=== PATIENT | male | born 1950 | race Caucasian/White ===

== ENCOUNTER → 2019-01-18 | Outpatient (CLI) | payer OTHER ==
[2019-01-18 12:08] LABS: Basophils # (auto) 0.1 uL; Basophils % (auto) 0.6 % (0.0-2.0); Eosinophils # (auto) 0.4 uL; Eosinophils % (auto) 3.3 % (0.0-7.0); Hematocrit 47.6 % (41.0-53.0); Lymphocytes # (auto) 2.3 uL; Lymphocytes % (auto) 18.2 % (10.0-50.0); Mean Corpuscular Hgb Conc. 33.6 g/dL (32.0-36.0); Mean Corpuscular Volume 95.3 fL (80.0-100.0); Monocytes % (auto) 8.2 % (0.0-12.0); Neutrophils # (auto) 8.7 uL; Neutrophils % (auto) 69.7 % (37.0-80.0); Nucleated Red Blood Cells % 0.6 %; Platelet Count (auto) 260 10^3/uL (140-450); Red Blood Cells 4.99 10^6/uL (4.5-5.90); Red Cell Distribution Width 14.2 % (11.8-14.3); White Blood Cell 12.4 10^3/uL (4.4-10.8)
[2019-01-18 12:57] LABS: Albumin 3.4 g/dL (3.4-5.0); Calcium 9.5 mg/dL (8.5-10.1)
[2019-01-18 13:00] LABS: Bilirubin, Direct 0.2 mg/dL (0-0.2); Bilirubin, Total 0.7 mg/dL (0.2-1.0); Total Protein 7.6 g/dL (6.4-8.2)
== END | disposition home or self-care (01) ==
LOC: LAB 09:49
PROVIDERS: ATTEND Internal Medicine
DX: Z00.00 Encounter for general adult medical examination without abnormal findings (principal); K74.1 Hepatic sclerosis; C61 Malignant neoplasm of prostate; E29.1 Testicular hypofunction; E11.9 Type 2 diabetes mellitus without complications; E03.9 Hypothyroidism, unspecified; D64.9 Anemia, unspecified
CPT/HCPCS: 36415; 80048; 80061; 80076; 82306; 83036; 84153; 84403; 84443; 85025

== ENCOUNTER → 2019-02-23 | Outpatient (CLI) | payer BC | END | disposition home or self-care (01) | LOC: Rad HDHVI 12:36 | PROVIDERS: ATTEND Internal Medicine Cardiovascular Disease | DX: I11.9 Hypertensive heart disease without heart failure (principal); E11.9 Type 2 diabetes mellitus without complications; I47.1 Supraventricular tachycardia | CPT/HCPCS: 93306 ==

== ENCOUNTER → 2019-03-10 | Outpatient (CLI) | payer BC ==
[~2019-03-10] VITALS: Ht 180.3 cm; Wt 142.9 kg
[~2019-03-10] MED LIST: ADENOSINE 120 MG in GIVE UN-DILUTED 0 ML IV ONE; ADENOSINE 90 MG/30 ML INJ IV ONE
== END | disposition home or self-care (01) ==
LOC: Rad HDHVI 13:06
PROVIDERS: ATTEND Internal Medicine Cardiovascular Disease
DX: E11.40 Type 2 diabetes mellitus with diabetic neuropathy, unspecified (principal); I10 Essential (primary) hypertension; R07.89 Other chest pain; R63.8 Other symptoms and signs concerning food and fluid intake; Z79.01 Long term (current) use of anticoagulants
CPT/HCPCS: 78452; 93005; 96374; 96375; A9500; J0153

== ENCOUNTER → 2020-08-22 | Outpatient (CLI) | payer OTHER | END | disposition home or self-care (01) | LOC: Rad HDHVI 12:52 | PROVIDERS: ATTEND Internal Medicine | DX: I10 Essential (primary) hypertension (principal); G62.9 Polyneuropathy, unspecified | CPT/HCPCS: 93880 ==

== ENCOUNTER → 2020-08-24 | Outpatient (CLI) | payer OTHER | END | disposition home or self-care (01) | LOC: Rad HDHVI 09:36 | PROVIDERS: ATTEND Internal Medicine Cardiovascular Disease | DX: I67.82 Cerebral ischemia (principal); I67.2 Cerebral atherosclerosis; G31.89 Other specified degenerative diseases of nervous system; R51.9 Headache, unspecified | CPT/HCPCS: 70450 ==

== ENCOUNTER → 2021-02-25 | Outpatient (CLI) | payer OTHER ==
[~2021-02-25] MED LIST changes: -ADENOSINE 120 MG in GIVE UN-DILUTED 0 ML IV ONE; -ADENOSINE 90 MG/30 ML INJ IV ONE; +GABA100C9 PO; +METF-370 PO; +METO-159 PO; +RIV20T PO; +VALS160T53 PO
[2021-02-25 08:50] VITALS: BP 138/85
[2021-02-25 09:00] VITALS: BP 143/77
[2021-02-25 11:28] LABS: Basophils # (auto) 0.1 10 ^3/uL (0-0.2); Basophils % (auto) 0.9 % (0.0-2.0); Eosinophils # (auto) 0.7 10 ^3/uL (0-0.8); Eosinophils % (auto) 6.7 % (0.0-7.0); Hematocrit 43.6 % (41.0-53.0); Lymphocytes # (auto) 3.3 10 ^3/uL (0.4-5.4); Lymphocytes % (auto) 30.7 % (10.0-50.0); Mean Corpuscular Hgb Conc. 34.5 g/dL (32.0-36.0); Mean Corpuscular Volume 98.7 fL (80.0-100.0); Monocytes % (auto) 9.3 % (0.0-12.0); Neutrophils # (auto) 5.7 10 ^3/uL (1.6-8.6); Neutrophils % (auto) 52.4 % (37.0-80.0); Nucleated Red Blood Cells % 0.1 %; Red Blood Cells 4.42 10^6/uL (4.5-5.90); Red Cell Distribution Width 13.5 % (11.8-14.3); White Blood Cell 10.8 10^3/uL (4.4-10.8)
[2021-02-25 11:41] LABS: INR 0.96 (0.9-1.15); Partial Thromboplastin Time 26.3 sec (23.6-33.0)
[2021-02-25 12:01] LABS: Alanine Aminotransferase 22 U/L (16-61); Albumin 3.1 g/dL (3.4-5.0); Alkaline Phosphatase 123 U/L (45-117); Aspartate Aminotransferase 20 U/L (15-37); BUN/Creatinine Ratio 16.7; Bilirubin, Total 0.4 mg/dL (0.2-1.0); Blood Urea Nitrogen 16 mg/dL (7-18); Calcium 9.3 mg/dL (8.5-10.1); Carbon Dioxide 30 mmol/L (21-32); GFR African American 99 mL/min; GFR Non-African American 82 mL/min; Glucose 101 mg/dL (74-106)
[2021-02-25 12:12] LABS: Total Protein 7.2 g/dL (6.4-8.2)
[2021-02-25 12:32] LABS: Anion Gap 4 (5-15); Chloride 106 mmol/L (98-107); Sodium 140 mmol/L (136-145)
== END | disposition home or self-care (01) ==
LOC: Rad HDHVI 08:31
PROVIDERS: ATTEND Internal Medicine
DX: Z01.812 Encounter for preprocedural laboratory examination (principal); Z45.010 Encounter for checking and testing of cardiac pacemaker pulse generator [battery]
CPT/HCPCS: 36415; 71046; 80053; 85025; 85610; 85730; 93005; G0463

== ENCOUNTER 2021-02-27 06:36 | Day surgery (SDC) | payer OTHER ==
[~2021-02-27] VITALS: Ht 179.1 cm; Wt 141.5 kg
[2021-02-27] MEDS ORDERED: LIDOCAINE 2%HCL (LOCAL ANESTH.) INJ 20ML MDV ONE (07:56)
[2021-02-27] MEDS ORDERED: VANCOMYCIN 1GM/250ML 250 ML IV ONE ×2 (08:00→08:07)
[2021-02-27] MEDS ORDERED: fentaNYL CITRATE 100 MCG/2 ML VL ONE (08:07)
[2021-02-27] MEDS ORDERED: MIDAZOLAM HCL 2MG/2ML 2ml VIAL (1mg/ml) ONE (08:07)
[2021-02-27] MEDS ORDERED: VANCOMYCIN HCL 1000 MG VL ONE (08:25)
== END 2021-02-27 11:01 | disposition home or self-care (01) ==
LOC: CATH 06:36
PROVIDERS: ATTEND Internal Medicine
DX: Z45.010 Encounter for checking and testing of cardiac pacemaker pulse generator [battery] (principal); I10 Essential (primary) hypertension; I25.10 Atherosclerotic heart disease of native coronary artery without angina pectoris; I73.9 Peripheral vascular disease, unspecified; E11.9 Type 2 diabetes mellitus without complications; Z79.899 Other long term (current) drug therapy; Z20.822 Contact with and (suspected) exposure to COVID-19; Z68.41 Body mass index [BMI] 40.0-44.9, adult
CPT/HCPCS: 33228; C1785; J2250; J3010; J3370; J7030; U0003; 99152; 99153

== ENCOUNTER → 2024-01-20 | Outpatient (CLI) | payer OTHER ==
[~2024-01-20] MED LIST changes: +GABA-1308 PO; -GABA100C9 PO
== END | disposition home or self-care (01) ==
LOC: Rad HDHVI 09:30
PROVIDERS: ATTEND Internal Medicine Cardiovascular Disease
DX: I10 Essential (primary) hypertension (principal)
CPT/HCPCS: 93880

== ENCOUNTER → 2024-01-26 | Outpatient (CLI) | payer OTHER | END | disposition home or self-care (01) | LOC: Rad HDHVI 15:00 | PROVIDERS: ATTEND Internal Medicine Cardiovascular Disease | DX: I10 Essential (primary) hypertension (principal); R06.02 Shortness of breath | CPT/HCPCS: 93306 ==

== ENCOUNTER → 2024-02-03 | Outpatient (CLI) | payer OTHER ==
[~2024-02-03] VITALS: Ht 177.8 cm; Wt 140.6 kg
[~2024-02-03] MED LIST changes: +ADENOSINE 118 MG in GIVE UN-DILUTED 0 ML IV ONE; +ADENOSINE 90 MG/30 ML INJ IV ONE
== END | disposition home or self-care (01) ==
LOC: Rad HDHVI 08:14
PROVIDERS: ATTEND Internal Medicine Cardiovascular Disease
DX: I10 Essential (primary) hypertension (principal); R06.02 Shortness of breath; E11.9 Type 2 diabetes mellitus without complications; I48.91 Unspecified atrial fibrillation; I49.5 Sick sinus syndrome; R42 Dizziness and giddiness; Z95.0 Presence of cardiac pacemaker
CPT/HCPCS: 78452; 93005; 96374; 96375; A9500; J0153

== ENCOUNTER → 2024-08-09 | Outpatient (CLI) | payer OTHER ==
[~2024-08-09] MED LIST changes: -ADENOSINE 118 MG in GIVE UN-DILUTED 0 ML IV ONE; -ADENOSINE 90 MG/30 ML INJ IV ONE; +B CO OR; +CHOL50007 PO; +GABA800T97 PO; +VALS40TA2 PO; +VITA80005 PO; +ZINC50TA7 PO
[2024-08-09 08:48] VITALS: BP 147/65; PULSE 81; RESP 16; O2SAT 92
[2024-08-09 09:05] VITALS: BP 132/65; PULSE 93; RESP 16; O2SAT 93
--- NOTE | 2024-08-09 15:12 | DVH ---
XY CHEST TWO VIEWS ROUTINE CLINICAL HISTORY: PRE OP COMPARISON: None TECHNIQUE: Frontal and lateral view of the chest was obtained FINDINGS: Lines and Tubes: Dual-chamber pacemaker in place with pulse generator over the left chest. Lungs: No focal consolidation. Pleura: No effusion. No pneumothorax. Cardiomediastinal contours: Unremarkable Bones: No acute osseous abnormality. IMPRESSION: 1. Pacemaker in place. 2. No active disease
== END | disposition home or self-care (01) ==
LOC: Rad HDHVI 08:28
PROVIDERS: ATTEND Internal Medicine Cardiovascular Disease
DX: Z01.811 Encounter for preprocedural respiratory examination (principal); I48.91 Unspecified atrial fibrillation; I50.33 Acute on chronic diastolic (congestive) heart failure; Z95.0 Presence of cardiac pacemaker
CPT/HCPCS: 71046; 93005; G0463

== ENCOUNTER 2024-08-11 06:08 | Day surgery (SDC) | payer OTHER ==
[2024-08-09 10:48] LABS: Basophils # (auto) 0.1 10 ^3/uL (0-0.2); Basophils % (auto) 0.9 % (0.0-2.0); Eosinophils # (auto) 0.4 10 ^3/uL (0-0.8); Eosinophils % (auto) 3.8 % (0.0-7.0); Hematocrit 46.7 % (41.0-53.0); Hemoglobin 15.5 g/dL (13.5-17.5); Lymphocytes # (auto) 2.1 10 ^3/uL (0.4-5.4); Lymphocytes % (auto) 21.6 % (10.0-50.0); Mean Corpuscular Hemoglobin 31.7 pg (28.0-32.0); Mean Corpuscular Hgb Conc. 33.3 g/dL (32.0-36.0); Mean Corpuscular Volume 95.2 fL (80.0-100.0); Monocytes # (auto) 0.9 10 ^3/uL (0-1.3); Monocytes % (auto) 9.3 % (0.0-12.0); Neutrophils # (auto) 6.3 10 ^3/uL (1.6-8.6); Neutrophils % (auto) 64.4 % (37.0-80.0); Platelet Count (auto) 192 10^3/uL (140-450); Red Blood Cells 4.91 10^6/uL (4.5-5.90); Red Cell Distribution Width 14.4 % (11.8-14.3); White Blood Cell 9.8 10^3/uL (4.4-10.8)
[2024-08-09 11:23] LABS: INR 1.14 (0.9-1.15); Partial Thromboplastin Time 30.9 SEC (24.5-34.5); Prothrombin Time 11.9 sec (9.3-11.8)
[2024-08-09 11:45] LABS: Calcium 10.1 mg/dL (8.7-10.4); Carbon Dioxide 30 mmol/L (20-31); Potassium 4.4 mmol/L (3.5-5.1); Sodium 143 mmol/L (136-145)
[2024-08-09 11:52] LABS: BUN/Creatinine Ratio 13.2 (10.0-20.0); Blood Urea Nitrogen 14 mg/dL (9-23)
[2024-08-09 11:58] LABS: Glucose 119 mg/dL (74-106)
[2024-08-09 12:06] LABS: Anion Gap 8 (5-15); Chloride 105 mmol/L (98-107)
[~2024-08-11] VITALS: Ht 177.8 cm; Wt 147.0 kg
[2024-08-11] VITALS (9 sets, daily range): BP systolic 148–173; BP diastolic 86–126; PULSE 73–80; RESP 15–24; O2SAT 90–97
[~2024-08-11 06:08] MED LIST changes: -VALS160T53 PO
[2024-08-11] MEDS ORDERED: IODIXANOL 320MG/ML 100ML BTL IV ONE (07:29)
[2024-08-11] MEDS ORDERED: ANGIOMAX 250 MG VIAL IV ONE (07:53)
[2024-08-11] MEDS ORDERED: HEPARIN SODIUM (PORCINE) 5000 UNITS/ML 1ML VIAL ONE (07:54)
[2024-08-11] MEDS ORDERED: VERAPAMIL 2.5MG/ML INJ 2ML VIAL IV ONE (07:54)
[2024-08-11] MEDS ORDERED: fentaNYL CITRATE 100 MCG/2 ML VL ONE (07:54)
[2024-08-11] MEDS ORDERED: MIDAZOLAM HCL 2MG/2ML 2ml VIAL (1mg/ml) ONE (07:55)
[2024-08-11] MEDS ORDERED: LIDOCAINE 2%HCL (LOCAL ANESTH.) INJ 20ML MDV ONE (07:55)
[2024-08-11] MEDS ORDERED: SODIUM CHL 0.9% 0 ML ONE (07:55)
[2024-08-11] MEDS ORDERED: IOHEXOL 350 MG/ML 100ML IJ ONE (08:05)
--- NOTE | 2024-08-11 12:20 | DVHDS ---
DATE OF DISCHARGE: 08/11/2024 DISCHARGE DIAGNOSES: The patient with diastolic dysfunction, elevated LVEDP, normal coronary anatomy. HOSPITAL COURSE: The patient is clinically stable, now being discharged home, stable at the time of discharge. Weight loss should be encouraged because the patient is morbidly obese. He has sick sinus syndrome, status post permanent pacemaker implantation. Follow up with me in 1 week. Stable at the time of discharge. ACTIVITY: As instructed. DIET: Will be 2 gram sodium diet. Bladimir Diaz MD SA/TRACEY TID: [id number] RECEIPT: [id number]
--- NOTE | 2024-08-11 12:22 | DVHOP ---
DATE OF SURGERY: 08/11/2024 PROCEDURES PERFORMED: Selective left and right coronary angiography, ventriculogram and conscious sedation. DESCRIPTION OF PROCEDURE: The patient was prepped and draped under sterile conditions. A 1% Xylocaine used to anesthetize the right wrist. Using a micropuncture needle, right radial artery was accessed. A 6-Sami sheath was introduced into the right radial artery via Seldinger technique. Using a 5-Sami [place] diagnostic catheter, selective left and right coronary angiography was performed. There were no complications. The patient tolerated the procedure well. anatomy, but we were able to get the 6-Sami pigtail catheter into the left atrium and angiography was performed after some difficulty. There were no complications. The patient tolerated the procedure. RESULTS: * Left main patent. * Left anterior descending artery without any flow restrictive lesion. * Circumflex without any flow restrictive lesion. * Right coronary artery nondominant vessel without any flow restrictive lesion. * Left ventricular function was preserved with an estimated EF around 50%-55% with an LVEDP of 23 mmHg with no gradient across the aortic valve. At this time, the patient with diastolic dysfunction. Aggressive antihypertensive therapy should be initiated. We will continue to follow the patient. Bladimir Diaz MD SA/ED[facility] TID: [id number] RECEIPT: [id number]
== END 2024-08-11 11:05 | disposition home or self-care (01) ==
LOC: CATH 06:08
PROVIDERS: ATTEND Internal Medicine Cardiovascular Disease
DX: R07.9 Chest pain, unspecified (principal); R79.1 Abnormal coagulation profile; I49.5 Sick sinus syndrome; E66.01 Morbid (severe) obesity due to excess calories; Z95.0 Presence of cardiac pacemaker; Z79.899 Other long term (current) drug therapy
CPT/HCPCS: 36415; 80048; 85025; 85610; 85730; 93458; C1769; C1887; C1894; J1644; J2250; J3010; J7030; Q9967; 99152; 99153